=== PATIENT | female | born 1985 | race Caucasian/White ===

== ENCOUNTER 2018-11-15 18:27 | Emergency (ER) | payer BC ==
[~2018-11-15] VITALS: Ht 152.4 cm; Wt 73.0 kg
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
[2018-11-15] MEDS ORDERED: KETOROLAC TROMETHAMINE INJ 30 MG/ML VIAL ONE (19:00)
[2018-11-15] MEDS ORDERED: KETOROLAC TROMETHAMINE INJ 60 MG/2 ML VIAL IM ONE (19:00)
[2018-11-15] MEDS ORDERED: ONDANSETRON 4 MG TAB.RAPDIS ONE (19:00)
[2018-11-15] MEDS ORDERED: ONDANSETRON 4 MG TAB.RAPDIS SL ONE (19:00)
--- NOTE | 2018-11-15 19:09 | NUR ---
PT TAKEN TO RADIOLOGY VIA [facility]
--- NOTE | 2018-11-15 19:12 | NUR ---
REPORT GIVEN TO MARIO FANG FOR KEITH
--- NOTE | 2018-11-15 19:25 | NUR ---
Pt returned from CT.
--- NOTE | 2018-11-15 19:30 | NUR ---
[facility] at bedside.
[2018-11-15 19:44] VITALS: BP 126/89
--- NOTE | 2018-11-15 19:44 | NUR ---
Patient discharged to home in stable condition. Written and verbal after care instructions given. Patient verbalizes understanding of instruction. Pt ambulatory with steady gait.
== END 2018-11-15 19:45 | disposition home or self-care (01) ==
LOC: ER 18:29
DX: S16.1XXA Strain of muscle, fascia and tendon at neck level, initial encounter (principal); S39.012A Strain of muscle, fascia and tendon of lower back, initial encounter; G62.9 Polyneuropathy, unspecified; F41.9 Anxiety disorder, unspecified; Z98.890 Other specified postprocedural states; V49.49XA Driver injured in collision with other motor vehicles in traffic accident, initial encounter; Y93.89 Activity, other specified; Y92.410 Unspecified street and highway as the place of occurrence of the external cause; Y99.8 Other external cause status
CPT/HCPCS: 70450-TC; 71045-TC; J1885; Q0162